=== PATIENT | male | born 1995 | race African-American/Black ===

== ENCOUNTER 2018-08-11 01:00 | Emergency (ER) | payer SELFPAY ==
[2018-08-11 01:00] VITALS: BP 142/85; PULSE 90; RESP 16; TEMP 36.3; O2SAT 99; BMI 23.5
--- NOTE | 2018-08-11 01:21 | ED.DCSUM_ITS ---
- ER Visit Summary Date of Service: 08/11/18 Chief Complaint: Dog bite History of Present Illness: The patient is a 22 M who presents with a dog bite to the left thigh. This occurred 8 hours ago. This was a domestic dog. He states that he was reading online and he said he needed to be seen in the emergency department with any 8 hours so he presented here. He otherwise has no complaints. Physical Examination: Afebrile vitals normal Patient has very superficial wounds and abrasion in a distribution consistent with a dog bite to the lateral left thigh these did not appear to be full- thickness/ to have punctured all the way through the skin. Test Results: Not indicated Emergency Department Course and Treatment: Given the superficial nature of the wound I do not believe any antibiotic prophylaxis is warranted. Wounds were cleansed and dressed and antibiotic ointment applied. He was advised on supportive care and discharged home. Treatment Plan: [] Disposition: Discharge Impression: Dog bite left thigh This note was generated with [employer] dictation software. It may contain incorrect words, spelling, and punctuation that were not noted in review of the chart prior to signing ED Disposition - Plan for ED Patient: Referrals: Care Physician,No Primary [Primary Care Provider] -
--- NOTE | 2018-08-11 01:21 | ED.DEP ---
ED Disposition - Plan for ED Patient: Instructions: ED Bite Dog Referrals: Care Physician,No Primary [Primary Care Provider] -
[2018-08-11 01:29] VITALS: RESP 15
== END 2018-08-11 01:35 | disposition home or self-care (01) ==
LOC: ED 01:31
PROVIDERS: Emergency Provider Emergency Medicine
DX: S70.372A Other superficial bite of left thigh, initial encounter (principal); W54.0XXA Bitten by dog, initial encounter; Y93.89 Activity, other specified; Y92.89 Other specified places as the place of occurrence of the external cause; Y99.8 Other external cause status
CPT/HCPCS: 99282